=== PATIENT | male | born 1970 | race Caucasian/White ===

== ENCOUNTER 2021-03-06 10:00 | Emergency (ER) | payer MEDICAID, SELFPAY ==
[~2021-03-06] VITALS: Ht 172.7 cm; Wt 95.3 kg
[~2021-03-06 10:00] MED LIST: CEPH-568 PO; CLIN-22 PO; IBUP-1970 PO
[2021-03-06 14:00] LABS: BASOPHILS # (AUTO) 0.1 K/uL (0.0-0.2); BASOPHILS % (AUTO) 0.5 % (0.0-2.0); EOSINOPHILS % (AUTO) 0.1 % (0.0-4.0); HEMATOCRIT 47.6 % (36-54); HEMOGLOBIN 16.2 g/dL (14.0-18.0); LYMPHOCYTES # (AUTO) 1.3 K/uL (1.0-5.5); LYMPHOCYTES % (AUTO) 10.2 % (20.5-51.5); MEAN CORPUSCULAR HEMOGLOBIN 33 pg (27-31); MEAN CORPUSCULAR HGB CONC 34 % (32-36); MEAN CORPUSCULAR VOLUME 96 fL (79.0-98.0); MONOCYTES # (AUTO) 1.2 K/uL (0.0-1.0); MONOCYTES % (AUTO) 9.4 % (1.7-9.3); NEUTROPHILS # (AUTO) 10.4 K/uL (1.8-7.7); NEUTROPHILS % (AUTO) 79.8 % (40.0-70.0); PLATELET COUNT (AUTO) 320 K/uL (130-430); RED BLOOD CELL COUNT(AUTO) 4.95 MIL/uL (4.2-6.2)
[2021-03-06 14:26] LABS: CALCIUM 9.2 mg/dL (8.4-11.0); CREATININE 1.1 mg/dL (0.55-1.30); POTASSIUM 3.4 mmol/L (3.5-5.1)
[2021-03-06 14:31] LABS: ALBUMIN 4.4 g/dL (3.4-4.8); TOTAL BILIRUBIN 0.8 mg/dL (0.0-1.0)
[2021-03-06 14:58] LABS: C-REACTIVE PROTEIN QUANT 0.4 mg/dL (0-0.5)
--- NOTE | 2021-03-06 15:49 | NUR ---
Assumed care pt. resting in levy on gurney, assessment done, pt. states here for SOB that has been ongoing for weeks, worsens at night having him wake up gasping, today couldn't breathe and lost feeling in his hands, pts. family was concerned of stroke, pt. informed me he thinks he might be having panic attacks, will swab for covid from previous order, and check O2 sat, lungs auscultate clear but pt. feels winded.
[2021-03-06 16:00] VITALS: BP_SYST 180
[2021-03-06] MEDS ORDERED: NACL 0.9% 1,000 ML IV ONE (16:00)
--- NOTE | 2021-03-06 16:00 | NUR ---
assumed care of pt. in HW bed, previously seen by
--- NOTE | 2021-03-06 17:02 | NUR ---
# 20 gauge angiocath placed to RT HAND. Use of asceptic technique. Opsite placed over site. Blood return noted. Blood for lab drawn from site. Flushed with 10 cc of normal saline. No evidence of infiltration noted. Patient tolerated well.
[2021-03-06 17:19] LABS: BILIRUBIN,URINE 1+ (NEGATIVE); BLOOD, URINE NEGATIVE (NEGATIVE); CLARITY/URINE CLEAR (CLEAR); COLOR,URINE YELLOW (YELLOW); GLUCOSE,URINE NEGATIVE (NEGATIVE); KETONES,URINE 2+ (NEGATIVE); LEUKOCYTE ESTERASE ,URINE NEGATIVE (NEGATIVE); NITRITE, URINE NEGATIVE (NEGATIVE); PROTEIN URINE TRACE (NEGATIVE)
[2021-03-06] MEDS ORDERED: cefTRIAXone 1 GM in D5W 50 ML IV ONE (18:00)
[2021-03-06 18:05] LABS: BACTERIA,URINE FEW /HPF (None Seen); MUCUS,URINE 3+ /LPF (None Seen); RBC,URINE 0-3 /HPF (0-3); WBC,URINE 0-3 /HPF (0-3)
[2021-03-06] MEDS ORDERED: LORazepam 1 MG TABLET PO ONE (18:15)
[2021-03-06 18:24] LABS: PROTHROMBIN TIME 10.4 SECS (9.5-12.5)
[2021-03-06] MEDS ORDERED: cefTRIAXone 1 GM VIAL ONE (18:56)
[2021-03-06] MEDS ORDERED: PRED20TA PO (19:43)
[2021-03-06] MEDS ORDERED: LORA-258 PO (19:43)
[2021-03-06] MEDS ORDERED: ALBU8.5H8 INH (19:43)
[2021-03-06] MEDS ORDERED: AZIT-93 PO (19:43)
[2021-03-06 20:00] VITALS: BP_SYST 168
--- NOTE | 2021-03-06 20:00 | NUR ---
Patient given written and verbal discharge instructions and verbalizes understanding. ER Dr. Tucker discussed with patient the results and treatment provided. Patient in stable condition. ID arm band removed. IV catheter removed intact and dressing applied, no active bleeding. Rx of albuterol, azithromycin, ativan, and prednisone given. Patient educated on pain management and to follow up with PMD. Pain Scale 0. Opportunity for questions provided and answered. Medication side effect fact sheet provided.
--- NOTE | 2021-03-06 20:08 | NUR ---
ER at bedside examining patient at [id number].
== END 2021-03-06 20:00 | disposition home or self-care (01) ==
LOC: SED 10:00
DX: J44.9 Chronic obstructive pulmonary disease, unspecified (principal)
CPT/HCPCS: 36415; 71045; 80053; 81000; 83605; 83880; 85025; 85379; 85610; 85730; 86140; 87040; 87086; 87426; 93005; 96361; 96365; 99285; J0696; 96360

== ENCOUNTER 2022-09-11 12:28 | Emergency (ER) | payer MEDICAID ==
[~2022-09-11] VITALS: Ht 172.7 cm; Wt 90.7 kg
[~2022-09-11 12:28] MED LIST changes: +ALBU8.5H8 INH; +AZIT-93 PO; +LORA-258 PO; +PRED20TA PO
[2022-09-11 12:50] VITALS: BP_SYST 146; PULSE 95; RESP 18; TEMP 98; O2SAT 96
[2022-09-11] MEDS ORDERED: MORPHINE 4 MG INJ. 4 MG/ML VIAL IM ONE (14:15)
[2022-09-11] MEDS ORDERED: KETOROLAC TROMETHAMINE 60 MG/2 ML VIAL IM ONE (14:15)
[2022-09-11] MEDS ORDERED: NAPR-690 PO (16:14)
[2022-09-11 16:20] VITALS: BP_SYST 134; PULSE 86; RESP 17; TEMP 98.3; O2SAT 97
== END 2022-09-11 16:20 | disposition home or self-care (01) ==
LOC: SED 12:28
DX: S33.5XXA Sprain of ligaments of lumbar spine, initial encounter (principal); Z79.899 Other long term (current) drug therapy; X58.XXXA Exposure to other specified factors, initial encounter; Y93.89 Activity, other specified; Y92.89 Other specified places as the place of occurrence of the external cause; Y99.8 Other external cause status
CPT/HCPCS: 99284; 96372; J1885; J2270

== ENCOUNTER 2023-09-12 07:58 | Day surgery (SDC) | payer MEDICAID ==
[~2023-09-12] VITALS: Ht 172.7 cm; Wt 88.5 kg
[~2023-09-12 07:58] MED LIST changes: -AZIT-93 PO; -CEPH-568 PO; -CLIN-22 PO; +LOSA50TA28 PO; +NAPR-690 PO; -PRED20TA PO
[2023-09-12] MEDS ORDERED: MIDAZOLAM HCL 5 MG/5 ML VIAL ONE (10:50)
[2023-09-12] MEDS ORDERED: fentaNYL CITRATE/PF 100 MCG/2 ML AMP ONE (10:50)
[2023-09-12 11:56] VITALS: O2SAT 96
[2023-09-12 14:06] VITALS: BP_SYST 147; PULSE 95; RESP 15
== END 2023-09-12 12:00 | disposition home or self-care (01) ==
LOC: SDS 07:58 → SMU 07:59 → SDS 12:00
PROVIDERS: ATTEND Internal Medicine
DX: Z12.11 Encounter for screening for malignant neoplasm of colon (principal); D12.4 Benign neoplasm of descending colon; K64.8 Other hemorrhoids; I10 Essential (primary) hypertension; E78.5 Hyperlipidemia, unspecified; G40.909 Epilepsy, unspecified, not intractable, without status epilepticus; Z90.89 Acquired absence of other organs; Z79.899 Other long term (current) drug therapy
CPT/HCPCS: 99152; 45385; 88305; G0378; J2250; J3010; 45380; 45384